=== PATIENT | female | born 1965 | race Caucasian/White ===

== ENCOUNTER → 2018-08-01 12:05 | Outpatient (CLI) | payer BC, SELFPAY | PROVIDERS: Family Provider Family Medicine; PCP Family Medicine; Visit Provider Family Medicine | DX: Z12.31 Encounter for screening mammogram for malignant neoplasm of breast (principal) | CPT/HCPCS: 77063; 77067 ==

== ENCOUNTER → 2020-01-19 10:19 | Outpatient (CLI) | payer BC, SELFPAY ==
[2020-01-19 12:28] LABS: Anion Gap 6 (5-15); BUN 10 mg/dL (7-18); BUN/Creat Ratio 14.5 RATIO (10-20); Calcium,Total 8.7 mg/dL (8.5-10.1); Chloride 106 mmol/L (98-107); Cholesterol 207 mg/dL (200); Creatinine, Serum 0.69 mg/dL (0.55-1.02); EST Glomerular Filtration Rate 94 mL/min (>60); Est Glom Filt Rate - Afr Amer 114 mL/min (>60); Glucose 88 mg/dL (74-106); High Density Lipoprotein 58 mg/dL; Potassium 3.9 mmol/L (3.5-5.1); Sodium Level 138 mmol/L (136-145); Triglycerides 162 mg/dL; Very Low Density Lipoprotein 32 mg/dL (5-40)
== END ==
PROVIDERS: PCP Family Medicine; Referring Provider Family Medicine; Visit Provider Family Medicine
DX: Z00.00 Encounter for general adult medical examination without abnormal findings (principal)
CPT/HCPCS: 36415; 80048; 80061

== ENCOUNTER → 2020-02-03 15:25 | Outpatient (CLI) | payer BC, SELFPAY ==
--- NOTE | 2020-02-03 15:28 | BI_ITS ---
MAMMOGRAPHY - BILATERAL SCREENING REASON FOR EXAM: Female, 54 years old. Routine annual screening examination. PERTINENT HISTORY: Non-contributory. Remote left stereotactic breast biopsy. TECHNIQUE: Digital bilateral breast karlo (3D mammographic acquisition) in the CC and MLO projections. 2-D mediolateral oblique (MLO) and craniocaudad (CC) views of both breasts were obtained. CAD: Full Field Digital Mammography with Computer Added Detection was performed. COMPARISON: Comparison is made with prior examination dated August 01, 2018 and June 23, 2015. FINDINGS: Breast Composition: The breasts are extremely dense, which lowers the sensitivity of mammography. There are no dominant masses or suspicious calcifications. Stable benign-appearing bilateral axillary lymph nodes. No other significant abnormalities are identified. There has been no significant change since the prior study. BI/SCREEN MAMM (CAD) W/KARLO BILAT IMPRESSION: Stable bilateral screening mammogram. Yearly follow-up mammogram recommended. (A) ASSESSMENT CATEGORY: BIRADS Category 2: Benign. A letter regarding these results will be sent to the patient by the facility within 30 days. Approximately 10% of breast cancers are not detected by mammography. A normal mammogram should not delay biopsy of a clinically suspicious abnormality. [id number] Electronically Signed: Lazaro Castro, at 8:49 EDT , Service support ,
--- NOTE | 2020-02-03 15:31 | BD_ITS ---
STUDY: DUAL ENERGY X-RAY ABSORPTIOMETRY / DXA REASON FOR EXAM: Female, 54 years old. 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 COMPARISON: None. FINDINGS: Lumbar Spine (L1-L4): g/cm2 (1.119) / T-score (-0.5) / Z-score (0.3) Findings are suggestive of normal bone density with a low fracture risk. Left Femur Total: g/cm2 (1.004) / T-score (0.0) / Z-score (0.7) Left Femoral Neck: g/cm2 (0.964) / T-score (-0.5) / Z-score (0.5) Right Femur Total: g/cm2 (0.928) / T-score (-0.6) / Z-score (0.0) Right Femoral Neck: g/cm2 (0.947) / T-score (-0.7) / Z-score (0.4) BD/Dexa Bone Density Study IMPRESSION: The patient is considered normal as outlined below according to [place] Organization (WHO) criteria with a low fracture risk. Reference Information: The T-score is the number of standard deviations above or below the standard which is normal for young adults at their peak bone mineral density. The World Health Organization (WHO) interprets the T-scores as follows: Above -1 Normal bone density Between -1 and -2.5 Osteopenia Equal to / or below -2.5 Osteoporosis As a practical clinical guideline, osteopenia may be graded as follows: Mild -1 through -1.5 Moderate -1.6 through -2.0 Severe -2.1 through -2.4 The Z-score is the number of standard deviations above or below age-matched controls. A Z-score of less than -1.5 would be considered abnormal. References: 1. NIH Osteoporosis and Related Bone Diseases http://www.osteo.org 2. International Society for Clinical Densitometry http://www.iscd.org 3. National Osteoporosis Foundation http://www.nof.org Electronically Signed: Lazaro Castro, at 15:28 EDT , Service support ,
== END ==
PROVIDERS: PCP Family Medicine; Referring Provider Family Medicine; Visit Provider Family Medicine
DX: Z00.00 Encounter for general adult medical examination without abnormal findings (principal); Z12.31 Encounter for screening mammogram for malignant neoplasm of breast; N95.9 Unspecified menopausal and perimenopausal disorder
CPT/HCPCS: 77063; 77067; 77080

== ENCOUNTER → 2022-07-20 | Outpatient (CLI) | payer OTHER, SELFPAY ==
--- NOTE | 2022-07-20 12:27 | BI_ITS ---
MAMMOGRAPHY - BILATERAL SCREENING REASON FOR EXAM: Female, 57 years old. Routine annual screening examination. PERTINENT HISTORY: Non-contributory. Remote left stereotactic breast biopsy. TECHNIQUE: Digital bilateral breast karlo (3D mammographic acquisition) in the CC and MLO projections. 2-D mediolateral oblique (MLO) and craniocaudad (CC) views of both breasts were obtained. CAD: Full Field Digital Mammography with Computer Added Detection was performed. COMPARISON: Comparison is made with prior study dated 02/03/2020 and 08/01/2018. FINDINGS: Breast Composition: The breasts are extremely dense, which lowers the sensitivity of mammography. There are no dominant masses or suspicious calcifications. Stable benign appearing bilateral axillary lymph nodes. No other significant abnormalities are identified. There has been no significant change since the prior study. BI/SCRN MAMM (CAD)W/KARLO BILAT IMPRESSION: Stable bilateral screening mammogram. Yearly follow-up mammogram recommended. (A) ASSESSMENT CATEGORY: BIRADS Category 2: Benign. A letter regarding these results will be sent to the patient by the facility within 30 days. Approximately 10% of breast cancers are not detected by mammography. A normal mammogram should not delay biopsy of a clinically suspicious abnormality. [id number] Electronically Signed: Lazaro Castro MD at 13:16 EDT ,
== END | disposition home or self-care (01) ==
LOC: OPBI 12:25
PROVIDERS: PCP Family Medicine; Visit Provider Family Medicine
DX: Z12.31 Encounter for screening mammogram for malignant neoplasm of breast (principal)
CPT/HCPCS: 77063; 77067

== ENCOUNTER → 2023-07-24 | Outpatient (CLI) | payer OTHER, SELFPAY ==
--- NOTE | 2023-07-24 13:25 | BI_ITS ---
MAMMOGRAPHY - BILATERAL SCREENING REASON FOR EXAM: Female, 58 years old. Routine annual screening examination. PERTINENT HISTORY: Non-contributory. Remote left stereotactic breast biopsy. TECHNIQUE: Digital bilateral breast karlo (3D mammographic acquisition) in the CC and MLO projections. 2-D mediolateral oblique (MLO) and craniocaudad (CC) views of both breasts were obtained. CAD: Full Field Digital Mammography with Computer Added Detection was performed. COMPARISON: Comparison is made with prior study July 20, 2022 and February 03, 2020. FINDINGS: Breast Composition: The breasts are extremely dense, which lowers the sensitivity of mammography. There are no dominant masses or suspicious calcifications. Stable small benign-appearing bilateral axillary lymph nodes. No other significant abnormalities are identified. There has been no significant change since the prior study. BI/SCRN MAMM (CAD)W/KARLO BILAT IMPRESSION: Stable bilateral screening mammogram. Yearly follow-up mammogram recommended. (A) ASSESSMENT CATEGORY: BIRADS Category 2: Benign. A letter regarding these results will be sent to the patient by the facility within 30 days. Approximately 10% of breast cancers are not detected by mammography. A normal mammogram should not delay biopsy of a clinically suspicious abnormality. [id number] Electronically Signed: Lazaro Castro MD at 10:25 EDT ,
== END | disposition home or self-care (01) ==
LOC: OPBI 13:25
PROVIDERS: PCP Family Medicine; Referring Provider Family Medicine; Visit Provider Family Medicine
DX: Z12.31 Encounter for screening mammogram for malignant neoplasm of breast (principal)
CPT/HCPCS: 77063; 77067

== ENCOUNTER 2024-04-09 16:05 | Emergency (ER) | payer OTHER, SELFPAY ==
[2024-04-09 16:07] VITALS: BP 152/99; PULSE 84; RESP 18; TEMP 36.2; O2SAT 98; BMI 30.9
--- NOTE | 2024-04-09 16:25 | EX.ED.UPPERE ---
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 Unsure of her last tetanus shot to be updated. Chief Complaint: Laceration Informant: patient Occured/Mechanism Mechanism/Context: Yes injury Onset/Context/Timing Onset: Today Context: Sudden Onset Timing: Continuous Quality of Pain: Sharp Current Severity: Mild Maximum Severity: Mild Associated Symptoms Associated Symptoms: Negative for Parasthesia, Weakness or Loss of Funtion Narrative Narrative: 58-year-old female [id number] History she lives home thenar eminence while working in [employer]. This is Worker's Comp. Unsure of her last tetanus. Tetanus Immunization: Unknown Prior similar symptoms: No Recent Illness/Hospitalization: No PFSH PFSH Allergy/AdvReac Type Severity Reaction Status Date / Time No Known Allergies Allergy Verified 04/09/24 16:07 Social History Smoking Status: Never smoker ROS ROS ED ROS Narrative Denies recent illness. Review of Systems ROS Unobtainable: Denies due to encephalopathy Constitutional Constitutional ED: Denies chills or fever(s) Eyes Eyes: Denies blurry vision ENT ENT ED: Denies ear pain Cardiovascular Cardiovascular: Denies chest pain Respiratory/Chest Respiratory/Chest: Denies cough Gastrointestinal Gastrointestinal: Denies abdominal pain Genitourinary Genitourinary ED: Denies dysuria Musculoskeletal Musculoskeletal: Denies back pain Integumentary Denies abscess Psychiatric Psychiatric: Denies anxiety Endocrine Endocrinology: Denies cold intolerance Hematologic/Lymphatic Hematologic/Lymphatic: Denies easy bleeding or easy bruising Allergic/Immunologic Allergic/Immunologic ED: Denies mouth swelling or tongue swelling EXAM Physical Exam Narrative Exam Narrative: Well-appearing 58-year-old female. Vital signs stable afebrile. H EENT exam unremarkable. Neck nontender. Lungs clear to auscultation. Heart regular rhythm rate about 80 no murmur. Chest wall ribs nontender. Abdomen soft nontender. Back nontender. Moving all 4 extremities. Nontender. No edema. She is on avoidance. A laceration over the thenar eminence of her left forearm proximal to the thumb. She has full flexion extension all digits of her left hand. Normal cap refill. Normal touch sensation. There is oozing of blood no pulsatile bleeding. No foreign body or infection. No bony deformity. Const Vital Signs: 04/09/24 16:07 Temperature 97.2 F L Temperature Source Temporal Pulse Rate 84 Respiratory Rate 18 Blood Pressure 152/99 H Blood Pressure Mean 116 Pulse Ox 98 Oxygen Delivery Method Room Air Positive well nourished and well developed; Negative for cachectic, contractures or unkempt General Appearance ED: well developed and NAD; Negative for unkempt, cachectic, contractures, cyanotic or diaphoretic Nutritional Appearance: Negative for cachectic HEENT Reports moist mucous membranes normocephalic and atraumatic; Negative for trauma or tenderness Eyes PERRL and EOMs intact bilaterally General Eye ED: Negative for other Neck full ROM and supple General: Negative for tenderness Lymph Lymphatic: Negative for other Chest Wall inspection of chest normal and palpation of chest normal Chest: Negative for other Resp normal respiratory effort and clear to auscultation bilaterally Effort and Inspection: Negative for pain with movement Auscultation: Negative for rales, rhonchi, wheezes or diminished lung sounds Cardio regular rate, regular rhythm, S1 normal heart sound, S2 normal heart sound and no murmurs Rate: Negative for bradycardia or tachycardic Rhythm: Negative for abnormal rhythm GI non-tender, non-distended and no masses Inspection: Negative for abdominal distention Auscultation: normoactive bowel sounds Palpation: soft; Negative for tender, guarding or rebound tenderness present Back/Spine no CVA tenderness General Back: Negative for CVA tenderness Cervical Spine: Negative for cervical spine tenderness Thoracic Spine / Upper Back: Negative for thoracic spinal tenderness Lumbar Spine / Lower Back: Negative for lumbar spinal tenderness Extremity full ROM; Negative for normal to inspection Extremity Narrative: Left hand. Laceration left palm about 1 and show thenar eminence proximal to thumb. Neurovascular intact. Full range of motion. No foreign body. No infection. Normal touch sensation. General Extremety ED: Negative for edema General Extremity: Negative for edema Neuro oriented x3, CN's II-XII intact bilaterally, moves all extremities, no focal motor deficits and no sensory deficits noted Sensorium / Orientation: alert, oriented to person, oriented to place and oriented to time; Negative for orientation impaired, lethargic or stuporous Motor Exam: strength 5/5 throughout Psych mental status grossly normal Appearance: Negative for unkempt Attitude: No agitated Mood & Affect: Negative for depressed, anxious or tearful Skin General Skin Exam: Negative for petechiae Lesions: no lesions Rashes: no rashes Trauma: laceration; Negative for no lacerations or abrasions or abrasion MDM MDM MDM Narrative Medical decision making narrative: 58-year-old female left palm laceration. Tetanus will be updated. Area will be local anesthetized lidocaine cleaned irrigated, explored and closed. Outpatient follow-up. Suture removal in 7 to 10 days. History & Record Review Discussion w/independent historian: Patient Procedures Lacerations Left palm laceration repair.: Length: 1.5 in Depth: Sub Q Shape: Linear Prep: Shure-Clens Laceration repair: Lidocaine, Local, Skin sutures and Wound explored Number of Sutures/Ge: 3 Suture Information: Ethilon, Simple and 4-0 Comment: Left palm laceration. 1.5 inches. Thenar eminence. Cleaned with Shur-Clens. Copiously irrigated. Locally anesthetized prior with lidocaine. Explored. Closed using 3 simple erupted 4-0 Ethilon sutures. Proper hemostasis wound closure obtained. Patient was instructed on wound care and suture removal in 10 days. Discharge Plan Triage Chief Complaint: Laceration ED Provider: Thomas Soto Dx/Rx/DC Orders Clinical Impression: Laceration of hand, left, Encounter related to worker's compensation claim Instructions: ED Laceration, Hand: All Closures Primary Care Provider: Beatriz Ruiz Referrals: [facility] [Group of Physicians] - 10 Day for suture removal Beatriz Ruiz MD [Primary Care Provider] - Activity Restrictions/Additional Instructions: Keep wound clean and dry. May get it wet just do not soak in any water. Dry thoroughly. Clean daily with soap and water or peroxide and water. Apply antibiotic ointment. Watch for signs of infection such as pus, red streaks, swelling or fever. Is seen return. Stitches out in 10 days. Print Language: Salvadorean Disposition Disposition: Home, Self Care
--- NOTE | 2024-04-09 16:48 | NURSING ---
wound bandaged and bandar here to drug test. pt up to br
[2024-04-09] MEDS: Lidocaine 1% (20 ml mdv) 20 ML Vial 10 ML INFILT (17:01)
[2024-04-09] MEDS: Diphth,Pertuss(Acell),Tet Vac 0.5 ML Vial IM (18:19)
[2024-04-09 18:28] VITALS: BP 152/99; PULSE 84; RESP 18; TEMP 36.2; O2SAT 98
== END 2024-04-09 18:36 | disposition home or self-care (01) ==
PROVIDERS: Emergency Provider Emergency Medicine; PCP Family Medicine; Visit Provider Emergency Medicine
DX: S61.412A Laceration without foreign body of left hand, initial encounter (principal); W26.8XXA Contact with other sharp object(s), not elsewhere classified, initial encounter; Y92.511 Restaurant or cafe as the place of occurrence of the external cause; Y93.89 Activity, other specified; Y99.0 Civilian activity done for income or pay; Z23 Encounter for immunization
CPT/HCPCS: 12001; 90471; 90715; 99284

== ENCOUNTER → 2025-08-18 | Outpatient (CLI) | payer OTHER, SELFPAY ==
--- NOTE | 2025-08-18 09:54 | NEURO ---
NCS and/or EMG Patient Report Ordering Doctor: Romeo Jacinto DATE OF SERVICE: 08/18/25 Clinical Summary: 60 year old female patient with symptoms of numbness in the right hand. Nerve Conduction Studies Summary: Nerve conduction studies were performed in the right upper extremity. The right median-APB CMAP distal latency was prolonged with reduced amplitude. The right ulnar-D5 SNAP distal latency was prolonged with reduced amplitude. The right ulnar-parker response amplitude was reduced. The right median-APB CMAP distal latency was prolonged. The right ulnar motor conduction velocity was reduced across the elbow segment. The right ulnar-FDI proximal to distal amplitude ratio across the elbow was 0.77, which is consistent with partial conduction block. Needle Examination Summary: Needle examination of select muscles of the right upper extremity demonstrated a higher proportion of motor unit action potentials with reduced recruitment, increased amplitude, increased duration, and polyphasia in the right flexor carpi ulnaris muscle. Impression: This is an abnormal study. There is electrodiagnostic evidence of the following - 1) Moderate to severe, right median mononeuropathy at the wrist (carpal tunnel syndrome), with motor fiber demyelination and secondary sensory fiber axonal loss 2) Right ulnar mononeuropathy at the elbow, with secondary motor and sensory fiber axonal loss There is no electrodiagnostic evidence of a right cervical radiculopathy. Multi Select Codes Neurology Neurology Interp Codes: 44582-66 Musc test done w/n test comp (interp) (1) and 52175-85 Nrv cndj test 7-8 studies (interp)
--- NOTE | 2025-08-18 09:54 | NEURO ---
NCS and/or EMG Patient Report Ordering Doctor: Romeo Jacinto DATE OF SERVICE: 08/18/25 Clinical Summary: 60 year old female patient with symptoms of numbness in the right hand. Nerve Conduction Studies Summary: Nerve conduction studies were performed in the right upper extremity. The right median-APB CMAP distal latency was prolonged with reduced amplitude. The right ulnar-D5 SNAP distal latency was prolonged with reduced amplitude. The right ulnar-parker response amplitude was reduced. The right median-APB CMAP distal latency was prolonged. The right ulnar motor conduction velocity was reduced across the elbow segment. The right ulnar-FDI proximal to distal amplitude ratio across the elbow was 0.77, which is consistent with partial conduction block. Needle Examination Summary: Needle examination of select muscles of the right upper extremity demonstrated a higher proportion of motor unit action potentials with reduced recruitment, increased amplitude, increased duration, and polyphasia in the right flexor carpi ulnaris muscle. Impression: This is an abnormal study. There is electrodiagnostic evidence of the following - 1) Moderate to severe, right median mononeuropathy at the wrist (carpal tunnel syndrome), with motor fiber demyelination and secondary sensory fiber axonal loss 2) Right ulnar mononeuropathy at the elbow, with secondary motor and sensory fiber axonal loss There is no electrodiagnostic evidence of a right cervical radiculopathy. Multi Select Codes Neurology Neurology Interp Codes: 25044-56 Musc test done w/n test comp (interp) (1) and 57056-56 Nrv cndj test 7-8 studies (interp)
== END | disposition home or self-care (01) ==
PROVIDERS: PCP Family Medicine; Referring Provider Family Medicine; Visit Provider Family Medicine
DX: R20.0 Anesthesia of skin (principal)
CPT/HCPCS: 93005; 95886; 95910